=== PATIENT | male | born 1990 | race Two or more races ===

== ENCOUNTER → 2020-02-10 | Emergency (ER) | payer BC ==
[~2020-02-10] VITALS: Ht 172.7 cm; Wt 77.1 kg
[2020-02-10 22:36] VITALS: BP 124/85
== END | disposition home or self-care (01) ==
LOC: ER 20:19
DX: S63.285A Dislocation of proximal interphalangeal joint of left ring finger, initial encounter (principal); W26.8XXA Contact with other sharp object(s), not elsewhere classified, initial encounter; Y93.89 Activity, other specified; Y92.89 Other specified places as the place of occurrence of the external cause; Y99.8 Other external cause status
CPT/HCPCS: 26770; 73130

== ENCOUNTER → 2020-02-25 | Emergency (ER) | payer BC ==
[~2020-02-25] VITALS: Ht 172.7 cm; Wt 74.8 kg
[2020-02-25 20:27] VITALS: BP 128/74
== END | disposition left against medical advice (07) ==
LOC: ER 19:57
DX: M79.645 Pain in left finger(s) (principal); Z53.21 Procedure and treatment not carried out due to patient leaving prior to being seen by health care provider
CPT/HCPCS: 73130

== ENCOUNTER 2021-01-21 12:55 | Emergency (ER) | payer BC ==
[~2021-01-21] VITALS: Ht 167.6 cm; Wt 74.8 kg
[2021-01-21 14:05] LABS: Basophils # (auto) 0.1 10 ^3/uL (0-0.2); Basophils % (auto) 1.4 % (0.0-2.0); Eosinophils # (auto) 0.2 10 ^3/uL (0-0.8); Eosinophils % (auto) 2.6 % (0.0-7.0); Hematocrit 45.7 % (41.0-53.0); Hemoglobin 16.2 g/dL (13.5-17.5); Lymphocytes # (auto) 1.7 10 ^3/uL (0.4-5.4); Lymphocytes % (auto) 21.2 % (10.0-50.0); Mean Corpuscular Hemoglobin 31.2 pg (28.0-32.0); Mean Corpuscular Hgb Conc. 35.3 g/dL (32.0-36.0); Mean Corpuscular Volume 88.5 fL (80.0-100.0); Monocytes # (auto) 0.6 10 ^3/uL (0-1.3); Monocytes % (auto) 7.8 % (0.0-12.0); Neutrophils # (auto) 5.3 10 ^3/uL (1.6-8.6); Nucleated Red Blood Cells % 0.1 %; Platelet Count (auto) 234 10^3/uL (140-450); Red Blood Cells 5.17 10^6/uL (4.5-5.90); Red Cell Distribution Width 13.1 % (11.8-14.3); White Blood Cell 7.9 10^3/uL (4.4-10.8)
[2021-01-21 14:24] LABS: Salicylate 4.4 mg/dL (2.8-20.0)
[2021-01-21 14:26] LABS: Albumin 4.4 g/dL (3.4-5.0); Anion Gap 8 (5-15); Blood Urea Nitrogen 12 mg/dL (7-18); Calcium 8.9 mg/dL (8.5-10.1); Carbon Dioxide 25 mmol/L (21-32); Chloride 107 mmol/L (98-107); Glucose 94 mg/dL (74-106); Magnesium 2.2 mg/dL (1.6-2.6); Potassium 3.4 mmol/L (3.5-5.1); Sodium 140 mmol/L (136-145)
[2021-01-21 14:31] LABS: Alanine Aminotransferase 21 U/L (16-61); Alkaline Phosphatase 95 U/L (45-117); Aspartate Aminotransferase 17 U/L (15-37); BUN/Creatinine Ratio 13.5; Bilirubin, Total 0.9 mg/dL (0.2-1.0); Blood Alcohol < 3.0 mg/dL (0-5); GFR African American 130 mL/min; GFR Non-African American 107 mL/min; Total Protein 7.6 g/dL (6.4-8.2)
[2021-01-21 14:56] LABS: Alcohol, Urine < 3.0 mg/dL (0-10); Amphetamine Screen, Urine POSITIVE (NEGATIVE); Barbiturate Scree,Urine NEGATIVE (NEGATIVE); Benzodiazephine Screen, Urine NEGATIVE (NEGATIVE); Cannabinoid Screen, Urine POSITIVE (NEGATIVE); Cocaine Screen, Urine NEGATIVE (NEGATIVE); Opiate Scree,Urine NEGATIVE (NEGATIVE); Phencyclidine Screen, Urine NEGATIVE (NEGATIVE)
[2021-01-21 14:58] LABS: Acetaminophen < 2.0 ug/mL (10-30)
[2021-01-21 15:35] VITALS: BP 136/82
== END 2021-01-21 18:05 | disposition home or self-care (01) ==
LOC: ER 12:55
DX: F33.2 Major depressive disorder, recurrent severe without psychotic features (principal); R44.3 Hallucinations, unspecified
CPT/HCPCS: 36415; 80053; 80307; 80320; 80329; 83735; 85025